=== PATIENT | female | born 1945 | race Caucasian/White ===

== ENCOUNTER 2017-05-07 13:36 | Emergency (ER) | payer OTHER ==
[~2017-05-07 13:36] MED LIST: BENA5 PO; BUME1TAB PO; CARV6.252 PO; MEDR4PAK3 PO; METF-324 PO; POTA-267 PO; PRAV40TA2 PO; PRED20 PO; SYMB80AE INH
[2017-05-07 13:40] VITALS: BP 152/71; PULSE 91; RESP 20; TEMP 98.5
[2017-05-07] MEDS ORDERED: SODIUM CHLOR 0.9% 1000 ML INJ 1,000 ML IV SCH (13:40)
[2017-05-07] MEDS ORDERED: EPINEPHrine HCL (1:1000) 1 MG/ML VIAL IM ONE (13:45)
[2017-05-07] MEDS ORDERED: FAMOTIDINE 20 MG/2 ML VIAL IV PUSH ONE (13:45)
[2017-05-07] MEDS ORDERED: diphenhydrAMINE HCL 50 MG/ML VIAL IVP ONE (13:45)
[2017-05-07] MEDS ORDERED: SODIUM CHLORIDE 0.9% FLUSH 10 ML FLUSH IV FLUSH PRN (13:45)
[2017-05-07] MEDS ORDERED: methylPREDNISolone SOD SUCC 125 MG/2 ML VIAL IVP ONE (13:45)
[2017-05-07 13:51] VITALS: O2SAT 97
--- NOTE | 2017-05-07 13:54 | PD ---
HPI Chief Complaint: Allergic/Adverse Reaction Time Seen by Provider: 13:40 Travel History International Travel<30 days: No Contact w/Intl Traveler<30days: No Traveled to known affect area: No History of Present Illness HPI Patient is a 72-year-old female who presents to the emergency department for allergic reaction. The patient states she was bit by several fire ants on the right foot and then suddenly developed hives, itching, and shortness of breath. 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 She does complain of mild shortness of breath but denies any outright stridor or wheezing. She denies any nausea, vomiting, or abdominal pain. The patient does note a rash where she was bit by fire ants, however, also complains of a rash in the abdomen, back, neck, and face which is pruritic. The patient does have multiple medical problems including COPD, CAD, and diabetes. Symptoms are moderate, exacerbated after being bit by fire ants, and there are no current alleviating factors. PFSH Past Medical History Cardiac Catheterization: Yes Cardiomyopathy: Yes Cardiovascular Problems: Yes (CARDIOMYOPATHY) High Cholesterol: Yes COPD: Yes Diabetes: Yes Hypertension: Yes Respiratory: Yes (COPD) : 2 Para: 2 Past Surgical History Cardiac Surgery: Yes (INACTIVATED DEFIBRILATOR X 2 ) Pacemaker: Yes (INACTIVE ICD) Tonsillectomy: Yes Social History Alcohol Use: Yes (OCCASIONAL) Tobacco Use: No Substance Use: No Allergies-Medications (Allergen,Severity, Reaction): Coded Allergies: bacitracin (Unverified Allergy, Intermediate, RASH/SWELLING, 05/07/17) Reported Meds & Prescriptions Reported Meds & Active Scripts Active Reported Glimepiride 1 Mg Tab 0.5 Mg PO DAILY Take with breakfast or first main meal [Slow Mag] 1 Tab PO DAILY Multiple Vitamin 1 Tab 1 Tab PO DAILY Os-Von Calcium + D3 (Calcium Carbonate-Cholecalciferol) 500-200 Mg-Unit Tab 1 Tab PO DAILY Meloxicam 15 Mg Tab 15 Mg PO DAILY Entresto (Sacubitril-Valsartan) 24-26 Mg Tab 1 Tab PO DAILY Pravastatin 40 Mg Tab 40 Mg PO DAILY Klor-Con 10 (Potassium Chloride) 10 Meq Tab 10 Meq PO DAILY Bumetanide 1 Mg Tab 1 Mg PO DAILY Symbicort Inh (Budesonide/Formoterol Fumarate) 80-4.5 Mcg/Act Aero 2 Puff INH Q12HR Review of Systems Except as stated in HPI: all other systems reviewed are Neg Cardiovascular: No: Chest Pain or Discomfort Respiratory: Positive: Shortness of Breath, No: Wheezing, Stridor Gastrointestinal: No: Nausea, Vomiting, Abdominal Pain Musculoskeletal: Positive: Edema Skin: Positive Rash, Positive Itching Physical Exam Narrative GENERAL: Awake, alert, pleasant 72-year-old female who appears her stated age and is in mild respiratory distress. SKIN: Focused skin assessment warm/dry. Patient has erythema with hives over the foot, abdomen, back, and over the trapezius and posterior cervical region bilaterally as well as mild involvement of the face. HEAD: Atraumatic. Normocephalic. EYES: Pupils equal and round. No scleral icterus. No injection or drainage. ENT: No nasal bleeding or discharge. Mucous membranes pink and moist. No angioedema of the tongue or lips noted. NECK: Trachea midline. No JVD. No obvious stridor. CARDIOVASCULAR: Regular rate and rhythm. No murmur appreciated. RESPIRATORY: No accessory muscle use. Clear to auscultation. Breath sounds equal bilaterally. No wheezes noted. GASTROINTESTINAL: Abdomen soft, non-tender, nondistended. No rebound tenderness , guarding, rigidity. MUSCULOSKELETAL: No obvious deformities. No clubbing. No cyanosis. No edema. NEUROLOGICAL: Awake and alert. No obvious cranial nerve deficits. Motor grossly within normal limits. Normal speech. PSYCHIATRIC: Appropriate mood and affect; insight and judgment normal. Data Data Last Documented VS Vital Signs Date Time Temp Pulse Resp B/P (MAP) Pulse Ox O2 Delivery O2 Flow Rate FiO2 05/07/17 15:11 76 20 159/75 (103) 97 05/07/17 13:40 98.5 Orders Orders Ecg Monitoring (05/07/17 13:40) Iv Access Insert/Monitor (05/07/17 13:40) Oximetry (05/07/17 13:40) Diphenhydramine Inj (Benadryl Inj) (05/07/17 13:45) Methylprednisolone So Succ Inj (Solumedr (05/07/17 13:45) Famotidine Inj (Pepcid Inj) (05/07/17 13:45) Sodium Chlor 0.9% 1000 Ml Inj (Ns 1000 M (05/07/17 13:40) Sodium Chloride 0.9% Flush (Ns Flush) (05/07/17 13:45) Epinephrine (1:1000) Inj (Adrenalin (1:1 (05/07/17 13:45) MDM Medical Decision Making Medical Screen Exam Complete: Yes Emergency Medical Condition: Yes Medical Record Reviewed: Yes Differential Diagnosis Differential diagnosis includes allergic reaction, anaphylaxis, urticaria, angioedema. Narrative Course IV was established, labs were drawn and sent, and the patient was placed on cardiac telemetry monitoring and continuous pulse oximetry monitoring. The patient was in ministered epinephrine 0.3 mg IM. The patient then received Solu -Medrol 125 mg intravenously, Benadryl 25 g intravenously, Pepcid 20 mg intravenously and IV fluids. The patient was evaluated in 30 minute increments and her symptoms had significantly improved by 2:30 PM. The patient continued be evaluated, there is no evidence of rebound anaphylaxis, her rash had dissipated and the itching had resolved. The patient was observed for 4 hours, there is no further symptoms, the patient will be discharged home on prednisone , Pepcid, Benadryl, and epinephrine pen as needed. She is advised to return if symptoms worsen or progress. Diagnosis Primary Impression: Anaphylaxis Qualified Codes: T78.2XXA - Anaphylactic shock, unspecified, initial encounter Patient Instructions: General Instructions Additional Instructions: Medications as directed. Follow-up with your primary physician. Return if symptoms worsen or progress. Med/Other Pt SpecificInfo: Prescription(s) given Scripts Ranitidine (Zantac) 150 Mg Tab 150 MG PO BID for Reduce Stomach Acid, #10 TAB 0 Refills Prov: Nasim Herrera MD 05/07/17 Diphenhydramine (Diphenhydramine) 25 Mg Cap 25 MG PO Q6H Y for ALLERGIES, #20 CAP 0 Refills Prov: Nasim Herrera MD 05/07/17 Prednisone (Deltasone) 20 Mg Tab 40 MG PO DAILY for 4 Days, TAB 0 Refills Prov: Nasim Herrera MD 05/07/17 Epinephrine Inj (Epipen 2-Jose Inj) 0.3 Mg/0.3 Ml Pfpen 0.3 MG IM ONCE Y for ALLERGIC REACTION, #1 PACK 0 Refills Prov: Nasim Herrera MD 05/07/17 Disposition: 01 DISCHARGE HOME Condition: Stable Nasim Herrera MD May 07, 2017 13:54
[2017-05-07] MEDS ORDERED: MULTTAB67 PO (13:59)
[2017-05-07] MEDS ORDERED: PRAV40TA2 PO (13:59)
[2017-05-07] MEDS ORDERED: SACU1TAB PO (13:59)
[2017-05-07] MEDS ORDERED: SLOW MAG PO (13:59)
[2017-05-07] MEDS ORDERED: OS-CTAB3 PO (13:59)
[2017-05-07] MEDS ORDERED: POTA-243 PO (13:59)
[2017-05-07] MEDS ORDERED: BUME1TAB PO (13:59)
[2017-05-07] MEDS ORDERED: GLIM1TAB PO (13:59)
[2017-05-07] MEDS ORDERED: SYMB80AE INH (13:59)
[2017-05-07] MEDS ORDERED: MELO-1 PO (13:59)
[2017-05-07 14:33] VITALS: BP 137/69; RESP 20
[2017-05-07 15:11] VITALS: BP 159/75; PULSE 76; RESP 20; O2SAT 97
[2017-05-07] MEDS ORDERED: EPIP0.3I IM (15:36)
[2017-05-07] MEDS ORDERED: PRED-503 PO (15:36)
[2017-05-07] MEDS ORDERED: ZANT150T2 PO (15:36)
[2017-05-07] MEDS ORDERED: DIPH25CA PO (15:36)
[2017-05-07 16:29] VITALS: BP 135/79; PULSE 82; RESP 18; O2SAT 94
[2017-05-07 17:13] VITALS: BP 138/66; PULSE 78; RESP 20; O2SAT 97
== END 2017-05-07 18:28 | disposition home or self-care (01) ==
LOC: PHED 13:36
DX: T78.2XXA Anaphylactic shock, unspecified, initial encounter (principal)
CPT/HCPCS: 96361; 96372; 96374; 96375; 99284; J0171; J1200; J2930; J7030